=== PATIENT | male | born 1955 | race Caucasian/White ===

== ENCOUNTER 2022-11-11 13:10 | Observation (INO) | payer MEDICARE, MEDICAID, SELFPAY ==
[2022-11-11] VITALS (17 sets, daily range): BP systolic 111–136; BP diastolic 70–93; PULSE 63–76; RESP 14–18; TEMP 36.6–36.8; O2SAT 92–98; BMI 30.7; BMI 32.0
--- NOTE | 2022-11-11 | CRLHL7_ITS ---
For Patients: As a result of the Cures Act, medical imaging exams and procedure reports are released immediately into your electronic medical record. You may view this report before your referring provider. If you have questions, please contact your health care provider. INDICATION: STROKE INDICATION: Stroke. TECHNIQUE: CT head without contrast. Coronal/sagittal reconstruction images. COMPARISON: None FINDINGS: CSF spaces: Within normal limits for age. Brain parenchyma: The shahid-white differentiation is normal. No sign of mass, hemorrhage, or midline shift. Skull base and calvarium: The visualized paranasal sinuses and mastoid air cells are clear. The visualized orbits are grossly unremarkable. No skull fractures. IMPRESSION: 1. No acute intracranial hemorrhage, shift of midline structures, or mass effect. 2. No hyperdense MCA sign. 3. No acute loss of shahid-white matter differentiation. 4. Report called to Dr. Bryant, ED, 11/11/22, 1432 hours. Dictated by Chicho Rose MD @ 11/11/2022 2:34:06 PM Please note that all CT scans at this facility use dose modulation, iterative reconstruction, and/or weight-based dosing when appropriate to reduce radiation dose to as low as reasonably achievable. Dictated by: Chicho Rose MD @ 11/11/2022 14:34:17 (Electronically Signed)
--- NOTE | 2022-11-11 | CRLHL7_ITS ---
For Patients: As a result of the Century Cures Act, medical imaging exams and procedure reports are released immediately into your electronic medical record. You may view this report before your referring provider. If you have questions, please contact your health care provider. INDICATION: Acute stroke. TECHNIQUE: CTA neck with contrast bolus tracking, 3D angiographic rendering using maximum intensity projection (MIP) and images permanently archived. FINDINGS: There is carotid atherosclerosis bilaterally. There is a mild stenosis of the proximal right ICA, less than 50% by NASCET. There is no significant left carotid artery stenosis or dissection. There is no significant vertebral artery stenosis or dissection. The soft tissues of the neck are within normal limits. Advanced degenerative changes are noted in the cervical spine. IMPRESSION: Bilateral carotid atherosclerosis with mild stenosis of the proximal right ICA, less than 50% by NASCET. Please note that all CT scans at this facility use dose modulation, iterative reconstruction, and/or weight-based dosing when appropriate to reduce radiation dose to as low as reasonably achievable. Dictated by Bandar Wesley MD @ 11/11/2022 2:39:46 PM (Electronically Signed)
--- NOTE | 2022-11-11 | CRLHL7_ITS ---
For Patients: As a result of the Century Cures Act, medical imaging exams and procedure reports are released immediately into your electronic medical record. You may view this report before your referring provider. If you have questions, please contact your health care provider. INDICATION: Acute stroke. TECHNIQUE: CTA head with contrast bolus tracking, 3D angiographic rendering using maximum intensity projection (MIP) and images permanently archived. FINDINGS: There is scattered intracranial atherosclerotic disease. There is normal opacification of the intracranial vasculature. There is no large vessel occlusion. No aneurysm is identified. IMPRESSION: Unremarkable head CTA. No large vessel occlusion. Please note that all CT scans at this facility use dose modulation, iterative reconstruction, and/or weight-based dosing when appropriate to reduce radiation dose to as low as reasonably achievable. Dictated by Bandar Wesley MD @ 11/11/2022 2:36:29 PM (Electronically Signed)
--- NOTE | 2022-11-11 13:23 | ED_ITS ---
HPI - General Adult General Chief complaint: Neuro Symptoms/Altered Deficit Stated complaint: Stroke Time Seen by Provider: 11/11/22 13:14 History of Present Illness HPI narrative: 67-year-old man presenting to the emergency department via EMS with concern of stroke. Upon arrival in ED him in the back all anticipating CT imaging directly. I understand that last known well was approximately 13 hours ago when he went to bed last night 10:00 p.m.. He had delta 8 for the 1st time last night. Upon waking this morning was noted to be particularly weak and slurring his words 4 and half to 5 hours ago. This was observed by spouse. EMS noted him to be globally weak that he could not hold himself up. And that he was slurring his speech. I do not know that he has a stroke history of does have cardiac history. More history obtained on re-examination later noting that the cardiac history that was mentioned is less ischemic can actually an aortic valve replacement. Further is anticoagulated with apixaban. Further information obtained from spouse is that he does drink alcohol which Mr. Dobbins acknowledges, due to spouse is health another stressors 5 months ago began drinking in. Is drinking with sounds like about a pt of vodka a day. He did drink alcohol as usual yesterday along with the delta 8. What she witnessed was some generalized shaking and slurring of speech upon waking this morning. He has never had a seizure disorder nor has he ever had anything that sounds like DTs related to alcohol withdrawal. He typically quits cold turkey is how spouse describes it. Related Data Home Medications Medication Instructions Recorded Confirmed apixaban 5 mg tablet (Eliquis) 5 mg PO BID 11/11/22 11/11/22 atorvastatin 40 mg tablet 40 mg PO DAILY 11/11/22 11/11/22 metoprolol tartrate 50 mg tablet 50 mg PO BID 11/11/22 11/11/22 tamsulosin 0.4 mg capsule 0.4 mg PO DAILY 11/11/22 11/11/22 amoxicillin 500 mg capsule 2,000 mg PO ONCE PRN 11/12/22 11/12/22 multivitamin (Daily Multi-Vitamin 1 tab PO DAILY 11/12/22 11/12/22 tablet) Previous Rx's Medication Instructions Recorded folic acid 1 mg tablet 1 mg PO DAILY #30 tabs 11/14/22 lactulose 20 gram/30 mL oral 20 g (30 mL) PO TID #1,500 mL 11/14/22 solution thiamine mononitrate (vit B1) 100 250 mg (2.5 x 100 mg) PO TID #30 11/14/22 mg tablet (Vitamin B-1 tabs (mononitrate)) Allergies Allergy/AdvReac Type Severity Reaction Status Date / Time cephalexin Allergy Verified 11/11/22 18:12 Review of Systems Status of ROS: Reports: 6 or more systems reviewed and unremarkable except as noted in History and below [facility] Medical History (Updated 11/29/22 @ 17:07 by Luis Bryant MD) Dehydration ?E86.0 - Dehydration (ICD-10) Weakness ?R53.1 - Weakness (ICD-10) Alcohol dependence ?F10.20 - Alcohol dependence, uncomplicated (ICD-10) Osteomyelitis (~2018) ?M86.9 - Osteomyelitis, unspecified (ICD-10) Pleural effusion (~11/17/21) ?J90 - Pleural effusion, not elsewhere classified (ICD-10) BPH (benign prostatic hyperplasia) ?N40.0 - Benign prostatic hyperplasia without lower urinary tract symptoms (ICD-10) Gout ?M10.9 - Gout, unspecified (ICD-10) Pericardial effusion ?I31.39 - Other pericardial effusion (noninflammatory) (ICD-10) Pneumonia (~10/20/21) ?J18.9 - Pneumonia, unspecified organism (ICD-10) Coronary artery disease ?I25.10 - Atherosclerotic heart disease of [place] coronary artery without angina pectoris (ICD-10) Peripheral neuropathy ?G62.9 - Polyneuropathy, unspecified (ICD-10) Aortic stenosis due to bicuspid aortic valve ?Q23.0 - Congenital stenosis of aortic valve (ICD-10) ?Q23.1 - Congenital insufficiency of aortic valve (ICD-10) Hypertension ?I10 - Essential (primary) hypertension (ICD-10) Surgical History (Updated 11/11/22 @ 18:11 by Vianney Hadley MD) Amputation of toe of left foot ?S98.132A - Complete traumatic amputation of one left lesser toe, initial encounter (ICD-10) H/O aortic valve replacement (~08/16/21) ?Z95.2 - Presence of prosthetic heart valve (ICD-10) Social History What is your current living situation?: I presently have a place to live Problems where you live: no known problems Problems where you live details: none In the past 12 months, utilities in danger of being shut off: no In the past 12 mos, have been you worried that your food would run out before you had money to buy more?: never true In the past 12 mos, the food you bought just didn't last and you didn't have money to buy more?: never true Smoking Status: Former smoker Do you use any of these nicotine containing products: None Second hand tobacco smoke exposure: No How often do you have a drink containing alcohol: 4 or more times a week Alcohol type: hard liquor Alcohol type details: vodka How many standard drinks containing alcohol do you have on a typical day: 3 or 4 How often do you have six or more drinks on one occasion: Daily or almost daily AUDIT-C Alcohol total score: 9 Non-prescribed substance use: marijuana (any form) Caffeine: No How often does anyone, including family, friends and others, physically hurt you : never How often does anyone, including family, friends and others, insult or talk down to you: never How often does anyone, including family, friends and others, threaten you with harm: never How often does anyone, including family, friends and others, scream or curse at you: never service: Yes Exam Narrative: Exam Narrative: Pleasant. Examined on the ambulance cot initially. Head is atraumatic. Very dry mouth and slurring speech is difficult to form. Able to follow commands quickly. GCS of 15. NIH stroke scale perhaps of 1 On re-examination looks to be quite alert. More articulate now that I have moistened his mouth with some ice chips. Cranial nerves 2-12 intact. NIH stroke scale now at 0 Head is atraumatic. Neck is supple. Breathing easily and lungs appear to be clear. 2/6 systolic murmur. Loudest at the left sternal border. Little distant. Lower extremities are a little cool. He has absent 2 through 5 toes on the left foot --reportedly due to what I am understanding as osteomyelitis. He is a little tremulous and unsteady in his movements. 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 Abdomen is soft nontender without apparent mass. Const: Vital Signs, click to edit/add: Vital Signs - 24 hr 11/11/22 13:16 Temperature 97.8 F Pulse Rate [Left P ulse Oximeter] 74 Respiratory Rate 16 Blood Pressure [Ri ght Upper Arm] 127/93 H Pulse Oximetry 92 Oxygen Delivery Me thod Room Air Documenting provider has reviewed patient's vital signs: yes Course Course Hospital Course: Colton is a 67-year-old male who presented to the hospital for weakness and slurred speech. Symptoms were initially thought to be secondary to alcohol and THC intoxication, but persisted throughout stay. He did not exhibit elevated CIWA scores. symptoms were nonlateralizing during stay. MRI attempted, patient was unable to complete this secondary to visual hallucinations. Labs exhibited elevated LFTs and ammonia level, lactulose initiated for hepatic encephalopathy. Therapies followed during stay and patient was able to ambulate with a walker. MOCA 04/21. updated by phone; understands patient's diagnosis and need for complete alcohol cessation. She believes that she can take him home with 13/11 supervision and close PCP follow-up to discuss any further needs they may have. Vital Signs Vital signs: Initial Vital Signs Temperature 97.8 F 11/11/22 13:16 Temperature Source Temporal Artery Scan 11/11/22 13:16 Pulse Rate 74 11/11/22 13:16 Respiratory Rate 16 11/11/22 13:16 Blood Pressure 127/93 H 11/11/22 13:16 Blood Pressure Mean 104 11/11/22 13:16 Blood Pressure Position Semi-Fowlers 11/11/22 13:16 Pulse Oximetry 92 11/11/22 13:16 Oxygen Delivery Method Room Air 11/11/22 13:16 Vital Signs Temperature 97.8 F 11/11/22 13:16 Pulse Rate 74 11/11/22 13:16 Respiratory Rate 16 11/11/22 13:16 Blood Pressure 127/93 H 11/11/22 13:16 Pulse Oximetry 92 11/11/22 13:16 Oxygen Delivery Method Room Air 11/11/22 13:16 Temperature 98.0 F 11/14/22 17:48 Pulse Rate 84 11/14/22 17:48 Respiratory Rate 16 11/14/22 17:48 Blood Pressure 124/77 11/14/22 17:48 Pulse Oximetry 95 11/14/22 17:48 Oxygen Delivery Method Room Air 11/14/22 17:48 Medical Decision Making MDM Narrative Medical decision making narrative: I met in back hallway to CT. Filling stroke protocols did head scan and CTA head and neck. I also spoke with Stroke Neuro agreement with plan. Initiated IV hydration. I think this is more of a dry mouth affecting speech I do not see significant stroke symptoms though otherwise. Nothing really focal otherwise. Will be likely need to be admitted for weakness, dehydration, further evaluation for alcohol-related altered mental status and potential withdrawal. Likely THC ingestion exacerbated underlying propensity toward altered mental status. Encephalopathy? Possible seizure? I did review head images including noncontrast head CT and CTA head. Was contacted also by Radiology. Does not appear to be any acute bleed. There is no hypodense sign, no evidence of large vessel ischemia. Final Report: INDICATION: Acute stroke. TECHNIQUE: CTA neck with contrast bolus tracking, 3D angiographic rendering using maximum intensity projection (MIP) and images permanently archived. FINDINGS: There is carotid atherosclerosis bilaterally. There is a mild stenosis of the proximal right ICA, less than 50% by NASCET. There is no significant left carotid artery stenosis or dissection. There is no significant vertebral artery stenosis or dissection. The soft tissues of the neck are within normal limits. Advanced degenerative changes are noted in the cervical spine. IMPRESSION: Bilateral carotid atherosclerosis with mild stenosis of the proximal right ICA, less than 50% by NASCET. Have discussed this case with Stroke Neuro in agreement with already receiving maximal medical care at this time. Is too weak to be managed at home at this time. Still not really mentally clear I think. I have discussed with hospitalist for admission. Lab Data Lab results reviewed: Yes I reviewed the patient's lab results Labs: Lab Results 11/11/22 11/11/22 11/11/22 Range/Units 06:31 13:10 14:52 WBC 6.10 (4.50-11.00) K/uL RBC 4.00 L (4.30-5.90) m/uL Hgb 14.0 (13.5-17.5) gm/dL Hct 41.6 (37.0-53.0) % MCV 104 H (80-100) fL MCH 35 H (26-34) pg MCHC 34 (32-36) gm/dL RDW Coeff of [place] 15.4 (11.5-15.5) % Plt Count 103 L (140-440) K/uL Neut % (Auto) 75.2 H (42.0-72.0) % Lymph % (Auto) 15.1 L (20-44) % [place] % (Auto) 7.9 (0.0-11.0) % Eos % (Auto) 0.8 (0.0-7.0) % Baso % (Auto) 0.7 (0.0-3.0) % Neut # (Auto) 4.60 (1.7-7.0) K/uL Lymph # (Auto) 0.90 (0.90-2.90) K/uL [place] # (Auto) 0.50 (0.00-0.90) K/UL Eos # (Auto) 0.05 (0.00-0.50) K/uL Baso # (Auto) 0.04 (0.00-0.30) K/uL Abs Immat Gran (auto) 0.02 (0.00-0.30) K/uL Imm/Tot Granulo (auto) 0.3 % INR 2.31 H (0.91-1.10) APTT 39 H (23-33) Seconds Sodium 135 (135-149) mmol/L Potassium 4.3 (3.6-5.1) mmol/L Chloride 103 (96-114) mmol/L Carbon Dioxide 24 (20-32) mmol/L BUN 11 (7-30) mg/dL Creatinine 0.9 (0.5-1.5) mg/dL Estimated Creat Clear 78.44 Estimated GFR 95 ml/min Glucose 127 H (60-115) mg/dL Lactate 2.6 H (0.5-1.9) mmol/L Calcium 7.9 L (8.4-10.6) mg/dL Magnesium 1.9 (1.5-2.6) mg/dL Troponin I < 0.01 L (0.01-0.04) ng/mL C-Reactive Protein 0.7 (0.5-1.0) mg/dL NT-Pro-B Natriuret Pep 260 pg/mL Urine Color [place] A (Yellow) Urine Appearance Slightly Cloudy A (Clear) Urine pH 7.5 (5.0-8.5) Ur Specific [place] 1.020 (1.000-1.030) Urine Protein 3+ A (Negative) Urine Glucose (UA) Negative (Negative) Urine Ketones Negative (Negative) Urine Blood Trace-intact A (Negative) Urine Nitrite Negative (Negative) Urine Bilirubin Negative (Negative) Urine Urobilinogen 2.0 A (0.2-1.0) Ur Leukocyte Esterase Negative (Negative) Urine RBC 0-2 (0-2) Urine WBC 2-5 (0-5) Ur Squamous Epith Cells Moderate A (None-Few) Amorphous Sediment Few A (None) Other Sediment Moderate A (None) Urine Bacteria Moderate A (None) Fine Granular Casts Moderate A (None) Urine Opiates Screen Negative (Negative) Ur Oxycodone Screen Negative (Negative) Urine Methadone Screen Negative (Negative) Ur Propoxyphene Screen Negative (Negative) Ur Barbiturates Screen Negative (Negative) U Tricyclic Antidepress POSITIVE A (Negative) Ur Phencyclidine Scrn Negative (Negative) Ur Amphetamines Screen Negative (Negative) U Methamphetamines Scrn Negative (Negative) U Benzodiazepines Scrn Negative (Negative) Urine Cocaine Screen Negative (Negative) U Marijuana (THC) Screen POSITIVE A (Negative) Ur Drug Screen Comment See Note Ethyl Alcohol < 0.01 L (0.01-0.03) % Critical Care Time Critical Care Time Critical Care Time: Yes Attestation: The patient required my highest level preparedness to intervene emergently and I personally spent this critical care time directly and personally managing the patient. This critical care time included: Obtaining a history; Examining the patient; Pulse oximetry; Ordering and reviewing of studies; Arranging urgent treatment with development of a management plan; Evaluation of patients response to treatment; Frequent reassessment discussions with other providers. This critical care time was performed to assess and manage the high probability of imminent life-threatening deterioration that could result in multiorgan failure. It was exclusive of separate billable procedures and treating other patients and teaching time. Total Critical Care Time in Minutes: 50 Discharge Plan Discharge Clinical Impression: Alcohol dependence, Weakness, Dehydration, Altered mental status Patient Disposition: Admitted As Observation Condition: Improved Activity Level: No strenuous activity Activity Detail: No driving Discharge Diet: Heart Healthy (2 gm sodium, low fat)
[2022-11-11 13:35] LABS: Basophils Absolute Auto 0.04 K/uL (0.00-0.30); Basophils Percent Auto 0.7 % (0.0-3.0); Eosinophils Absolute Auto 0.05 K/uL (0.00-0.50); Eosinophils Percent Auto 0.8 % (0.0-7.0); Hematocrit 41.6 % (37.0-53.0); Immature Granulocytes Abs Auto 0.02 K/uL (0.00-0.30); Immature Granulocytes Pct Auto 0.3 %; Lymphocytes Percent Auto 15.1 % (20-44); Mean Corpuscular HGB Conc 34 gm/dL (32-36); Mean Corpuscular Hemoglobin 35 pg (26-34); Mean Corpuscular Volume 104 fL (80-100); Monocytes Percent Auto 7.9 % (0.0-11.0); Neutrophils Percent Auto 75.2 % (42.0-72.0); Platelet Count* 103 K/uL (140-440); RDW Coefficient of Variation % 15.4 % (11.5-15.5)
[2022-11-11 13:36] LABS: Lactate* 2.6 mmol/L (0.5-1.9)
[2022-11-11 13:49] LABS: Slide Review Reflex No
[2022-11-11 13:55] LABS: Chloride* 103 mmol/L (96-114); Potassium* 4.3 mmol/L (3.6-5.1); Sodium* 135 mmol/L (135-149)
[2022-11-11 13:56] LABS: INR 2.31 (0.91-1.10); Prothrombin Time 26.5 Seconds
[2022-11-11 13:58] LABS: Creatinine* 0.9 mg/dL (0.5-1.5); Est. Creatinine Clearance* 78.44; Estimated Glomerular Filt Rate 95 ml/min; Partial Thromboplastin Time* 39 Seconds (23-33)
[2022-11-11 13:59] LABS: Blood Urea Nitrogen* 11 mg/dL (7-30); Calcium* 7.9 mg/dL (8.4-10.6); Carbon Dioxide* 24 mmol/L (20-32); Glucose* 127 mg/dL (60-115); Magnesium* 1.9 mg/dL (1.5-2.6)
[2022-11-11] MEDS: 0.9 % SODIUM CHLORIDE 1000 ml 1,000 ML IV ×2 (14:00→15:25)
[2022-11-11 14:02] LABS: C Reactive Protein* 0.7 mg/dL (0.5-1.0)
[2022-11-11 14:11] LABS: Ethanol* < 0.01 % (0.01-0.03); NT Pro B Type NatriureticPept* 260 pg/mL; Troponin I* < 0.01 ng/mL (0.01-0.04)
[2022-11-11 15:10] LABS: Appearance Urine Slightly Cloudy (Clear); Bilirubin Urine Negative (Negative); Blood Urine Trace-intact (Negative); Color Urine Orange (Yellow); Glucose Urine Negative (Negative); Ketones Urine Negative (Negative); Leukocyte Esterase Urine Negative (Negative); Nitrite Urine Negative (Negative); Protein Urine 3+ (Negative); pH Urine 7.5 (5.0-8.5)
[2022-11-11 15:19] LABS: RBC Urine 0-2 (0-2)
[2022-11-11 15:20] LABS: Amorphous Sediment Urine Few; Bacteria Urine Moderate; Other Sediment Urine Moderate; Squamous Epithelial Cell Urine Moderate (None-Few)
[2022-11-11 15:21] LABS: Fine Granular Casts Urine Moderate
--- NOTE | 2022-11-11 17:58 | PM.IMHP1 ---
Hospitalist- H&P: HPI History of Present Illness Time Seen by Provider: 18:18 Date Seen: 11/11/22 Chief complaint: Stroke Narrative: Colton Dobbins is a 67 year old male who drinks a pt of vodka every day and has a history of hypertension and aortic valve replacement for which he is on chronic anticoagulation who woke up around 10am with slurred speech and inability to get bed. His tells me that they have gotten in the habit of being lazy and normally sleeps in to about 10 a.m.. They do not do much exercise and are fairly sedentary in the house even. He had his usual pt of vodka last night which he drinks every day, but also had half of a delta 8 cookie which contains THC according to their friend Renny, who was in the room with the patient and his . He has never tried a THC cookie before and his wonders if this may have contributed to his condition. She noticed that when he woke up he was playing with a cats while still staying in bed, but seemed to be interacting with them in an unusual way. She went to help him get up, but he could not get out of the bed and his speech was slurred. It also seemed like he was shaking and having trouble doing things such as turning off the fan near the bed. Patient himself does not remember any of this. His says that he is currently a little bit better than he was, but still has some slurred speech. The patient's , Malorie, called the patient's friend Renny who came over and eventually called a friend of his who is a nurse. The nurse friend came over and examined Colton and thought he might be having a stroke to they got him to the emergency department. He has drunk heavily on and off for years, but had been sober for several months last year when he underwent multiple different heart surgeries. In December or January of last year he lost his job at [employer] in [place]. After that he started drinking heavily again. He has not seen his primary care provider for several months and is due to get back into see him, but notes that his provider has been very unhappy that he has gone back to drinking heavily and has implored him to stop. Review of Systems Status of ROS: Reports: 10 or more systems reviewed and unremarkable except as noted in History and below [facility] Medical History (Updated 11/11/22 @ 23:52 by Vianney Hadley MD) Osteomyelitis (~2019) ?M86.9 - Osteomyelitis, unspecified (ICD-10) Pleural effusion (~11/17/21) ?J90 - Pleural effusion, not elsewhere classified (ICD-10) BPH (benign prostatic hyperplasia) ?N40.0 - Benign prostatic hyperplasia without lower urinary tract symptoms (ICD-10) Gout ?M10.9 - Gout, unspecified (ICD-10) Pericardial effusion ?I31.39 - Other pericardial effusion (noninflammatory) (ICD-10) Pneumonia (~10/20/21) ?J18.9 - Pneumonia, unspecified organism (ICD-10) Coronary artery disease ?I25.10 - Atherosclerotic heart disease of [place] coronary artery without angina pectoris (ICD-10) Peripheral neuropathy ?G62.9 - Polyneuropathy, unspecified (ICD-10) Aortic stenosis due to bicuspid aortic valve ?Q23.0 - Congenital stenosis of aortic valve (ICD-10) ?Q23.1 - Congenital insufficiency of aortic valve (ICD-10) Hypertension ?I10 - Essential (primary) hypertension (ICD-10) Surgical History (Updated 11/11/22 @ 18:11 by Vianney Hadley MD) Amputation of toe of left foot ?S98.132A - Complete traumatic amputation of one left lesser toe, initial encounter (ICD-10) H/O aortic valve replacement (~08/16/21) ?Z95.2 - Presence of prosthetic heart valve (ICD-10) Social History What is your current living situation?: I presently have a place to live Problems where you live: no known problems Problems where you live details: none In the past 12 months, utilities in danger of being shut off: no In the past 12 mos, have been you worried that your food would run out before you had money to buy more?: never true In the past 12 mos, the food you bought just didn't last and you didn't have money to buy more?: never true Smoking Status: Former smoker Do you use any of these nicotine containing products: None Second hand tobacco smoke exposure: No How often do you have a drink containing alcohol: 4 or more times a week Alcohol type: hard liquor Alcohol type details: vodka How many standard drinks containing alcohol do you have on a typical day: 3 or 4 How often do you have six or more drinks on one occasion: Daily or almost daily AUDIT-C Alcohol total score: 9 Non-prescribed substance use: marijuana (any form) Caffeine: No How often does anyone, including family, friends and others, physically hurt you: never How often does anyone, including family, friends and others, insult or talk down to you: never How often does anyone, including family, friends and others, threaten you with harm: never How often does anyone, including family, friends and others, scream or curse at you: never service: Yes Meds Home Medications and Allergies Home Medications Medication Instructions Recorded Confirmed Type apixaban 5 mg tablet (Eliquis) 5 mg PO BID 11/11/22 11/11/22 History atorvastatin 40 mg tablet 40 mg PO DAILY 11/11/22 11/11/22 History metoprolol tartrate 50 mg tablet 50 mg PO BID 11/11/22 11/11/22 History nortriptyline 50 mg capsule 50 mg PO QPM 11/11/22 11/11/22 History oxycodone 5 mg tablet 5 mg PO Q4H 11/11/22 11/11/22 History tamsulosin 0.4 mg capsule 0.4 mg PO DAILY 11/11/22 11/11/22 History Allergies Allergy/AdvReac Type Severity Reaction Status Date / Time cephalexin Allergy Verified 11/11/22 18:12 Exam Narrative: Exam Narrative: General: No acute distress. Awake, alert, oriented to self and place, ability to give history waxes and wanes. Family had to correct him on some details and say he is normally sharp. Bilateral asterixis is present. HEENT: Normocephalic atraumatic, pupils equally round and reactive to light and accommodation. Oropharynx clear. Mucous membranes are moist. No cervical lymphadenopathy, thyromegaly or carotid bruits. No JVD. Cardiovascular: Regular rate and rhythm. Grade 3/6 systolic murmur loudest at the left upper sternal border. Chest: No increased work of breathing. Clear to auscultation bilaterally. No crackles or wheezes. Abdomen: Bowel sounds present. Soft, nondistended, nontender. No hepatosplenomegaly or masses. Extremities: 2mm black eschar on top of R 2nd toe PIP joint, no induration or drainage. 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 Multiple surgical scars that are well healed on the left foot with healed surgical amputations of all but the great toe. 1+ bilateral pretibial edema, no cyanosis or clubbing. Skin: As above. No jaundice, no pallor, no rashes. Neuro: Bilateral asterixis and tremor present. No pronator drift. Romberg is negative. Cranial nerves 2-12 are intact. Extraocular movements are full. No nystagmus. No facial asymmetry. Tongue is midline. Peripheral vision and vision are grossly intact. Strength is 5/5 in all 4 extremities, but exam seems variable and I had to have him repeat things several times especially for the left leg, but he was ultimately able to comply with good strength. DTRs intact and symmetric. Light touch sensation is intact in face body and extremities. Coordination is impaired in the left arm and leg, leg more so than the arm. Const: Vital Signs, click to edit/add: Vital Signs - 24 hr 11/11/22 13:16 Temperature 97.8 F Pulse Rate [Left P ulse Oximeter] 74 Respiratory Rate 16 Blood Pressure [Ri ght Upper Arm] 127/93 H Pulse Oximetry 92 Oxygen Delivery Me thod Room Air Documenting provider has reviewed patient's vital signs: yes Hospitalist - H&P: Result Labs Labs: Short CBC 11/11/22 Range/Units 13:10 WBC 6.10 (4.50-11.00) K/uL Hgb 14.0 (13.5-17.5) gm/dL Hct 41.6 (37.0-53.0) % Plt Count 103 L (140-440) K/uL BMP 11/11/22 13:10 Sodium 135 Potassium 4.3 Chloride 103 Carbon Dioxide 24 BUN 11 Creatinine 0.9 Glucose 127 H Calcium 7.9 L Cardiac Enzymes 11/11/22 Range/Units 13:10 Troponin I < 0.01 L (0.01-0.04) ng/mL Urine 11/11/22 Range/Units 14:52 Urine Color [place] A (Yellow) Urine Appearance Slightly Cloudy A (Clear) Urine pH 7.5 (5.0-8.5) Ur Specific [place] 1.020 (1.000-1.030) Urine Protein 3+ A (Negative) Urine Glucose (UA) Negative (Negative) 11/11/2022 EKG: Normal sinus rhythm, 75 beats per minute, right bundle-branch block. Ordering Physician: Milena Ann M.D. Date of Service: 11/11/22 Procedure(s): CT head/brain wo con Accession Number(s): [id number] cc: Milena Ann M.D.; Yair Mercado M.D.~ For Patients: As a result of the Cures Act, medical imaging exams and procedure reports are released immediately into your electronic medical record. You may view this report before your referring provider. If you have questions, please contact your health care provider. INDICATION: STROKE INDICATION: Stroke. TECHNIQUE: CT head without contrast. Coronal/sagittal reconstruction images. COMPARISON: None FINDINGS: CSF spaces: Within normal limits for age. Brain parenchyma: The shahid-white differentiation is normal. No sign of mass, hemorrhage, or midline shift. Skull base and calvarium: The visualized paranasal sinuses and mastoid air cells are clear. The visualized orbits are grossly unremarkable. No skull fractures. IMPRESSION: 1. No acute intracranial hemorrhage, shift of midline structures, or mass effect. 2. No hyperdense MCA sign. 3. No acute loss of shahid-white matter differentiation. 4. Report called to Dr. Bryant, ED, 11/11/22, 1432 hours. Dictated by Chicho Rose MD @ 11/11/2022 2:34:06 PM Please note that all CT scans at this facility use dose modulation, iterative reconstruction, and/or weight-based dosing when appropriate to reduce radiation dose to as low as reasonably achievable. Dictated by: Chicho Rose MD @ 11/11/2022 14:34:17 (Electronically Signed) Ordering Physician: Milena Ann M.D. Date of Service: 11/11/22 Procedure(s): CT angio head Accession Number(s): [id number] cc: Milena Ann M.D.; Yair Mercado M.D.~ For Patients: As a result of the Cures Act, medical imaging exams and procedure reports are released immediately into your electronic medical record. You may view this report before your referring provider. If you have questions, please contact your health care provider. INDICATION: Acute stroke. TECHNIQUE: CTA head with contrast bolus tracking, 3D angiographic rendering using maximum intensity projection (MIP) and images permanently archived. FINDINGS: There is scattered intracranial atherosclerotic disease. There is normal opacification of the intracranial vasculature. There is no large vessel occlusion. No aneurysm is identified. IMPRESSION: Unremarkable head CTA. No large vessel occlusion. Please note that all CT scans at this facility use dose modulation, iterative reconstruction, and/or weight-based dosing when appropriate to reduce radiation dose to as low as reasonably achievable. Dictated by Bandar Wesley MD @ 11/11/2022 2:36:29 PM (Electronically Signed) Ordering Physician: Milena Ann M.D. Date of Service: 11/11/22 Procedure(s): CT angio neck Accession Number(s): [id number] cc: Milena Ann M.D.; Yair Mercado M.D.~ For Patients: As a result of the Cures Act, medical imaging exams and procedure reports are released immediately into your electronic medical record. You may view this report before your referring provider. If you have questions, please contact your health care provider. INDICATION: Acute stroke. TECHNIQUE: CTA neck with contrast bolus tracking, 3D angiographic rendering using maximum intensity projection (MIP) and images permanently archived. FINDINGS: There is carotid atherosclerosis bilaterally. There is a mild stenosis of the proximal right ICA, less than 50% by NASCET. There is no significant left carotid artery stenosis or dissection. There is no significant vertebral artery stenosis or dissection. The soft tissues of the neck are within normal limits. Advanced degenerative changes are noted in the cervical spine. IMPRESSION: Bilateral carotid atherosclerosis with mild stenosis of the proximal right ICA, less than 50% by NASCET. Please note that all CT scans at this facility use dose modulation, iterative reconstruction, and/or weight-based dosing when appropriate to reduce radiation dose to as low as reasonably achievable. Dictated by Bandar Wesley MD @ 11/11/2022 2:39:46 PM (Electronically Signed) Assessment and Plan Assessment and plan (1) Slurred speech: Problem comment: This is combined with confusion, weakness, and left-sided decreased coordination. Differential includes postictal state from alcohol withdrawal seizure, stroke, although this is less likely since he had a CT head and CTA head that did not show evidence of stroke, toxic metabolic encephalopathy, intoxication, polypharmacy with oxycodone and alcohol. Admit for observation and obtain an MRI head tomorrow or Sunday. If he is not better by tomorrow morning, consider lumbar puncture. Decrease oxycodone dose. Start CIWA protocol. Check TSH, also glucose is noted to be 127 on today's labs, not hypoglycemic. Status: Acute (2) Weakness: Problem comment: left side less coordinated, but no pronator drift, consult PT and OT. Status: Acute (3) Macrocytosis without anemia: Problem comment: This is in the setting of thrombocytopenia as well. May benefit from a peripheral blood smear, although I think this is most likely secondary to alcohol use. Status: Acute (4) Thrombocytopenia: Problem comment: May benefit from peripheral blood smear, although I suspect this is secondary to heavy alcohol use. Discussed the danger of this while taking eliquis and using alcohol, especially so heavily Status: Acute (5) Alcohol dependence: Problem comment: I spoke with the patient about the abnormal laboratory values which may be secondary to heavy alcohol use and have recommended complete abstinence from alcohol at this point. Patient and his family demonstrated understanding. Status: Acute (6) Dehydration: Problem comment: He received 2 L IV normal saline in the ER and his lactate has normalized. Saline lock and continue to encourage oral fluids. Status: Acute (7) Hypertension: Status: Chronic Plan Imaging as above and obtain TSH. PT and OT consults. H&P: Quality Stroke Contraindication Not Initiating IV-Tpa: Contraindicated (Time of onset unknown) Symptom Onset Unknown: Yes Contraindication Antithromb by Day Two: Medical contraindication (On Eliquis and has borderline low platelet count) Rehab Services Assessed: Physical therapy assessment (Ordered)
[2022-11-11 18:20] LABS: Lactate* 1.7 mmol/L (0.5-1.9)
[2022-11-11] MEDS: APIXABAN 5 MG TABLET PO (20:35)
[2022-11-11] MEDS: METOPROLOL TARTRATE 50 MG TABLET PO (20:35)
[2022-11-11] MEDS: THIAMINE 100 MG TABLET 250 MG PO (20:35)
[2022-11-11] MEDS: SODIUM CHLORIDE 0.9 % (FLUSH) 10 ML SYRINGE 5 ML IVF (20:36)
[2022-11-12 03:00] VITALS: BP 126/79; PULSE 61; RESP 16; TEMP 36.6; O2SAT 98
--- NOTE | 2022-11-12 05:25 | PC.NURSE ---
Patient alert and oriented. Speech clear and appropriate, no slurring noted but patient does occasionally pause and has to think of what he wants to say. Strength in extremities equal, mild weakness noted. CIWA scores consistently 1 throughout the night, patient does have tremor at baseline and does not feel it is any worse than normal. Pain reported to hip, pain is 3/10 and tolerable. Patient did get out of bed independently and was ambulating to the bathroom, patient was unable to hold urine and urinated on the floor. Bowel sounds active x 4 quadrants, denies any nausea or vomiting. Lung sounds clear, no cough or shortness of breath noted.
[2022-11-12 06:43] LABS: Amphetamine Screen Urine Negative (Negative); Barbiturate Screen Urine Negative (Negative); Benzodiazepines Screen Urine Negative (Negative); Cannabinoid Screen Urine POSITIVE (Negative); Cocaine Screen Urine Negative (Negative); Methadone Screen Urine Negative (Negative); Methamphetamines Screen Urine Negative (Negative); Opiate Screen Urine Negative (Negative); Oxycodone Screen Urine Negative (Negative); Phencyclidine Screen Urine Negative (Negative); Tricyclic Antidepressant Urine POSITIVE (Negative)
[2022-11-12 06:47] LABS: Ionized Calcium* 1.07 mmol/L (1.11-1.30)
[2022-11-12 06:58] LABS: Basophils Absolute Auto 0.04 K/uL (0.00-0.30); Basophils Percent Auto 0.6 % (0.0-3.0); Eosinophils Absolute Auto 0.19 K/uL (0.00-0.50); Eosinophils Percent Auto 2.9 % (0.0-7.0); Hematocrit 39.7 % (37.0-53.0); Hemoglobin* 13.1 gm/dL (13.5-17.5); Immature Granulocytes Abs Auto 0.01 K/uL (0.00-0.30); Immature Granulocytes Pct Auto 0.2 %; Lymphocytes Absolute Auto 1.41 K/uL (0.90-2.90); Lymphocytes Percent Auto 21.8 % (20-44); Mean Corpuscular HGB Conc 33 gm/dL (32-36); Mean Corpuscular Hemoglobin 35 pg (26-34); Mean Corpuscular Volume 106 fL (80-100); Monocytes Percent Auto 9.6 % (0.0-11.0); Neutrophils Absolute Auto 4.19 K/uL (1.7-7.0); Neutrophils Percent Auto 64.9 % (42.0-72.0); Platelet Count* 79 K/uL (140-440); RDW Coefficient of Variation % 15.4 % (11.5-15.5); Red Blood Count 3.74 m/uL (4.30-5.90); White Blood Count* 6.46 K/uL (4.50-11.00)
[2022-11-12 07:01] LABS: Slide Review Reflex No
[2022-11-12 07:15] LABS: INR 2.44 (0.91-1.10); Prothrombin Time 27.7 Seconds
[2022-11-12 07:18] LABS: Chloride* 105 mmol/L (96-114); Potassium* 4.1 mmol/L (3.6-5.1); Sodium* 136 mmol/L (135-149)
[2022-11-12 07:21] LABS: Blood Urea Nitrogen* 11 mg/dL (7-30); Carbon Dioxide* 27 mmol/L (20-32); Creatinine* 0.8 mg/dL (0.5-1.5); Est. Creatinine Clearance* 78.44; Estimated Glomerular Filt Rate 98 ml/min; Glucose* 83 mg/dL (60-115)
[2022-11-12 07:22] LABS: Calcium* 7.6 mg/dL (8.4-10.6)
[2022-11-12 08:20] VITALS: BP 139/83; PULSE 63; RESP 18; TEMP 36.7; O2SAT 97
[2022-11-12 08:35] LABS: Hemoglobin A1C* 4.89 % (0-5.6)
[2022-11-12] MEDS: THIAMINE 100 MG TABLET 250 MG PO ×2 (09:42→20:37)
[2022-11-12] MEDS: ATORVASTATIN CALCIUM 40 MG TABLET PO (09:43)
[2022-11-12] MEDS: FOLIC ACID 1 MG TABLET PO (09:43)
[2022-11-12] MEDS: METOPROLOL TARTRATE 50 MG TABLET PO ×2 (09:44→20:37)
[2022-11-12] MEDS: MULTIVITAMIN/MINERALS 1 TABLET 1 TAB PO (09:44)
[2022-11-12] MEDS: SODIUM CHLORIDE 0.9 % (FLUSH) 10 ML SYRINGE 5 ML IVF ×2 (09:45→20:37)
[2022-11-12] MEDS: TAMSULOSIN HCL 0.4 MG CAPSULE PO (09:45)
[2022-11-12] MEDS: APIXABAN 5 MG TABLET PO ×2 (09:46→20:37)
[2022-11-12 12:00] VITALS: BP 112/62; PULSE 64; RESP 18; TEMP 36.4; O2SAT 96
--- NOTE | 2022-11-12 15:37 | PC.NURSE ---
PT eval by PT, walked with SBA of 1, GB and walker. Some balance issues noted. No word searching, no dysphagia with medications. Speech has cleared, MRI screening form completed per protocol. Kvng 100% of bkfst, declined lunch tray. Up in recliner for majority of shift. Pt denies pain. VS unremarkable, CIWA scored twice and value equal to 1 both times. No acute sx of ETOH withdrawal noted. No inappropriate behaviors Pt calm and cooperative with nsg cares. Brain MRI pending. Adequate I & 0. Report to Ariane Bull RN for evening shift.
[2022-11-12 16:15] VITALS: BP 129/87; PULSE 66; RESP 16; TEMP 36.6; O2SAT 97
--- NOTE | 2022-11-12 16:27 | PM.IMPN1 ---
Progress Note: A&P Assessment and plan (1) Slurred speech: Problem details: - noted on admission; combined with confusion, weakness, and left-sided decreased coordination - ddx: postictal state from ETOH withdrawal seizure (no history of this), stroke (less likely given reassuring head CT/CTA), toxic metabolic encephalopathy, intoxication, polypharmacy with oxycodone/ETOH - TSH pending, MRI of brain has been ordered, consider further workup pending clinical course - continue to follow CIWA Status: Acute (2) Weakness: Problem details: - therapies following Status: Acute (3) Macrocytosis without anemia: Problem details: - Hgb 13.1 on 11/12, also has thrombocytopenia (likely related to ETOH abuse), outpatient workup if desired Status: Acute (4) Thrombocytopenia: Problem details: - likely 2/2 ETOH use, understands importance of abstaining from ETOH given thrombocytopenia and anticoagulation Status: Acute (5) Alcohol dependence: Problem details: - patient understands many of his lab abnormalities are likely 2/2 ETOH use. Complete abstinence recommended, patient and family demonstrated understanding Status: Acute (6) Dehydration: Problem details: - received 2L IV normal saline in the ER and lactate then normalized - encourage po intake Status: Acute (7) Hypertension: Status: Chronic Plan - continue therapies, await MRI - follow CIWA scores - Apixaban for ppx - likely home tomorrow pending clinical course Subjective Date Seen: 11/12/22 Interval history: Patient is feeling much better today. He is not having significant alcohol withdrawal symptoms. He is working with therapies but not yet back to baseline; amenable to brain MRI for further workup. Specifically denies headaches, chest pain, dyspnea. Exam Narrative: Exam Narrative: GEN: Alert and answering questions appropriately HEENT: Normal external ears, EOMIs bilaterally, no scleral icterus CV: RRR, early systolic murmur with fixed split S2 noted R: LCTA bilaterally without concerning wheezing, air movement adequate Ext: wwp, no concerning edema Skin: No concerning skin lesions or rashes on exposed skin Neuro: No dysmetria on [id number] testing, no resting tremor, no asterixis noted on exam today, no pronator drift. Normal and symmetric DTRs, gait not observed Psych: Appropriate Const: Vital Signs, click to edit/add: Vital Signs - 24 hr 11/11/22 16:30 11/11/22 16:30 11/11/22 17:00 Temperature Pulse Rate 69 Pulse Rate [Left A pical] Pulse Rate [Right Pulse Oximeter] Pulse Rate [Right Radial] 69 71 Respiratory Rate 14 Blood Pressure 123/77 Blood Pressure [Ri ght Arm] Pulse Oximetry 96 Oxygen Delivery Me thod 11/11/22 17:00 11/11/22 17:15 11/11/22 17:15 Temperature 98.0 F Pulse Rate 71 Pulse Rate [Left A pical] Pulse Rate [Right Pulse Oximeter] Pulse Rate [Right Radial] 68 Respiratory Rate 14 18 16 Blood Pressure 119/82 Blood Pressure [Ri ght Arm] 128/78 Pulse Oximetry 96 98 92 Oxygen Delivery Me thod Room Air Room Air 11/11/22 17:59 11/11/22 19:00 11/11/22 23:00 Temperature 98.0 F 98.1 F 98.2 F Pulse Rate Pulse Rate [Left A pical] Pulse Rate [Right Pulse Oximeter] Pulse Rate [Right Radial] 68 65 63 Respiratory Rate 16 16 16 Blood Pressure Blood Pressure [Ri ght Arm] 128/78 132/81 120/78 Pulse Oximetry 98 97 98 Oxygen Delivery Ne thod Room Air Room Air Room Air 11/12/22 03:00 11/12/22 08:20 11/12/22 12:00 Temperature 97.8 F 98.1 F 97.6 F Pulse Rate Pulse Rate [Left A pical] 63 64 Pulse Rate [Right Pulse Oximeter] 61 63 64 Pulse Rate [Right Radial] Respiratory Rate 16 18 18 Blood Pressure Blood Pressure [Ri ght Arm] 126/79 139/83 112/62 Pulse Oximetry 98 97 96 Oxygen Delivery Me thod Room Air Room Air Room Air 11/12/22 12:00 Temperature 97.6 F Pulse Rate Pulse Rate [Left A pical] 64 Pulse Rate [Right Pulse Oximeter] 64 Pulse Rate [Right Radial] Respiratory Rate 18 Blood Pressure Blood Pressure [Ri ght Arm] 112/62 Pulse Oximetry 96 Oxygen Delivery Me thod Room Air Labs Labs: Laboratory Results - last 24 hr 11/11/22 11/11/22 11/12/22 06:31 18:15 06:12 WBC 6.46 RBC 3.74 L Hgb 13.1 L Hct 39.7 MCV 106 H MCH 35 H MCHC 33 RDW Coeff of Noam 15.4 Plt Count 79 L Neut % (Auto) 64.9 Lymph % (Auto) 21.8 [place] % (Auto) 9.6 Eos % (Auto) 2.9 Baso % (Auto) 0.6 Neut # (Auto) 4.19 Lymph # (Auto) 1.41 [place] # (Auto) 0.60 Eos # (Auto) 0.19 Baso # (Auto) 0.04 Abs Immat Gran (auto) 0.01 Imm/Tot Granulo (auto) 0.2 INR 2.44 H Sodium 136 Potassium 4.1 Chloride 105 Carbon Dioxide 27 BUN 11 Creatinine 0.8 Estimated Creat Clear 78.44 Estimated GFR 98 Glucose 83 Hemoglobin A1c 4.89 Lactate 1.7 Calcium 7.6 L Ionized Calcium Stephenie 1.07 L Urine Opiates Screen Negative Ur Oxycodone Screen Negative Urine Methadone Screen Negative Ur Propoxyphene Screen Negative Ur Barbiturates Screen Negative U Tricyclic Antidepress POSITIVE A Ur Phencyclidine Scrn Negative Ur Amphetamines Screen Negative U Methamphetamines Scrn Negative U Benzodiazepines Scrn Negative Urine Cocaine Screen Negative U Marijuana (THC) Screen POSITIVE A Ur Drug Screen Comment See Note Progress Note: Quality Stroke Contraindication Not Initiating IV-Tpa: Contraindicated (Time of onset unknown) Symptom Onset Unknown: Yes Contraindication Antithromb by Day Two: Medical contraindication (On Eliquis and has borderline low platelet count) Rehab Services Assessed: Physical therapy assessment (Ordered)
[2022-11-12] MEDS: NORTRIPTYLINE HCL 25 MG CAPSULE 50 MG PO (17:35)
[2022-11-12 19:00] VITALS: BP 139/87; PULSE 75; RESP 16; TEMP 36.8; O2SAT 94
--- NOTE | 2022-11-12 22:25 | PC.NURSE ---
Shift [id number]- This afternoon, just after shift change, patient sets of chair alarm, up to bathroom independently, PT staff intervene. He is noted to be a little off- not quite able to comprehend directions during that time and perhaps a little more shaky. He is sat back to chair. Blood glucose is 80 at this time. Snack given. Just after this, he is calm, able to speak with RN coherently and is alert and oriented. CIWA <9- see intervention. He continues to sit in chair, is alert and oriented throughout, though this evening he states he sees a dog outside curled up next to [place] that hasn't really moved. There is no dog. Appetite intact.
[2022-11-12 23:00] VITALS: BP 149/81; PULSE 75; RESP 16; RESP 18; TEMP 36.6; O2SAT 98
[2022-11-13 03:00] VITALS: BP 115/76; PULSE 76; RESP 18; TEMP 36.7; O2SAT 96
--- NOTE | 2022-11-13 06:04 | PC.NURSE ---
Shift note: Pt ambulates with SBA and walker to the bathroom, needs occasional directions. He was hallucinating last night, first seeing dog hiding around 2100. At midnight he tells nurse there are butterflies in the room and he couldn't belief when nurse said they're not really there.
[2022-11-13 07:06] LABS: Basophils Absolute Auto 0.02 K/uL (0.00-0.30); Basophils Percent Auto 0.3 % (0.0-3.0); Eosinophils Absolute Auto 0.21 K/uL (0.00-0.50); Eosinophils Percent Auto 3.6 % (0.0-7.0); Hematocrit 38.5 % (37.0-53.0); Hemoglobin* 12.6 gm/dL (13.5-17.5); Immature Granulocytes Abs Auto 0.02 K/uL (0.00-0.30); Immature Granulocytes Pct Auto 0.3 %; Lymphocytes Percent Auto 19.8 % (20-44); Mean Corpuscular HGB Conc 33 gm/dL (32-36); Mean Corpuscular Hemoglobin 35 pg (26-34); Mean Corpuscular Volume 106 fL (80-100); Monocytes Percent Auto 8.3 % (0.0-11.0); Neutrophils Percent Auto 67.7 % (42.0-72.0); Platelet Count* 74 K/uL (140-440); RDW Coefficient of Variation % 15.4 % (11.5-15.5); Red Blood Count 3.63 m/uL (4.30-5.90); White Blood Count* 5.77 K/uL (4.50-11.00)
[2022-11-13 07:17] LABS: Chloride* 106 mmol/L (96-114); Slide Review Reflex No
[2022-11-13 07:18] LABS: Potassium* 3.7 mmol/L (3.6-5.1); Sodium* 137 mmol/L (135-149)
[2022-11-13 07:20] LABS: Creatinine* 0.8 mg/dL (0.5-1.5); Est. Creatinine Clearance* 78.44; Estimated Glomerular Filt Rate 98 ml/min
[2022-11-13 07:21] LABS: Blood Urea Nitrogen* 10 mg/dL (7-30); Calcium* 7.6 mg/dL (8.4-10.6); Carbon Dioxide* 29 mmol/L (20-32); Glucose* 93 mg/dL (60-115); Magnesium* 1.8 mg/dL (1.5-2.6)
[2022-11-13 07:28] LABS: INR 2.39 (0.91-1.10); Prothrombin Time 27.2 Seconds
[2022-11-13 07:50] VITALS: BP 125/65; PULSE 65; RESP 16; TEMP 36.7; O2SAT 95
[2022-11-13] MEDS: FOLIC ACID 1 MG TABLET PO (08:49)
[2022-11-13] MEDS: APIXABAN 5 MG TABLET PO ×2 (08:49→20:46)
[2022-11-13] MEDS: SODIUM CHLORIDE 0.9 % (FLUSH) 10 ML SYRINGE 5 ML IVF ×2 (08:50→20:46)
[2022-11-13] MEDS: MULTIVITAMIN/MINERALS 1 TABLET 1 TAB PO (08:50)
[2022-11-13] MEDS: METOPROLOL TARTRATE 50 MG TABLET PO ×2 (08:50→20:35)
[2022-11-13] MEDS: TAMSULOSIN HCL 0.4 MG CAPSULE PO (08:51)
[2022-11-13] MEDS: THIAMINE 100 MG TABLET 250 MG PO ×2 (08:51→20:35)
[2022-11-13] MEDS: ATORVASTATIN CALCIUM 40 MG TABLET PO (08:52)
[2022-11-13] MEDS: LORazepam 1 MG TABLET PO (09:44)
[2022-11-13 11:50] VITALS: BP 125/78; PULSE 70; RESP 18; TEMP 36.7; O2SAT 97
[2022-11-13 14:55] VITALS: BP 135/81; PULSE 72; RESP 18; TEMP 36.6; O2SAT 93
[2022-11-13 15:36] LABS: Albumin* 2.7 g/dL (3.3-5.0)
[2022-11-13 15:39] LABS: Aspartate Amino Transferase* 128 U/L (12-35); Bilirubin Direct* 0.4 mg/dL (0.0-0.5); Bilirubin Total* 1.6 mg/dL (0.1-1.5)
[2022-11-13 15:40] LABS: Alanine Aminotransferase* 51 U/L (4-50); Alkaline Phosphatase* 161 U/L (40-150)
--- NOTE | 2022-11-13 16:54 | P.IMPN_ITS ---
Progress Note: A&P Assessment and plan (1) Slurred speech: Problem details: - noted on admission; combined with confusion, weakness, and left-sided decreased coordination - ddx: postictal state from ETOH withdrawal seizure (no history of this), stroke (less likely given reassuring head CT/CTA), toxic metabolic encephalopathy, intoxication, polypharmacy with marijuana/ETOH, Wernicke encephalitis. No evidence of infectious process. Symptoms wax and wane and are not lateralizing - TSH wnl, MRI unable to be obtained - CIWA scores have been wnl - more labs added 11/13, increase thiamine dosing, obtain TTE as well given cardiac history - reviewed with by phone on 11/13; she believes symptoms are likely use to alcohol overuse in addition to THC Status: Acute (2) Thrombocytopenia: Problem details: - likely 2/2 ETOH use, understands importance of abstaining from ETOH given thrombocytopenia and anticoagulation Status: Acute (3) Macrocytosis without anemia: Problem details: - Hgb 13.1 on 11/12, also has thrombocytopenia (likely related to ETOH abuse), outpatient workup if desired Status: Acute (4) Hypertension: Status: Chronic (5) Alcohol dependence: Problem details: - patient understands many of his lab abnormalities are likely 2/2 ETOH use. Complete abstinence recommended, patient and family demonstrated understanding Status: Acute (6) Weakness: Problem details: - therapies following - may require SNF Status: Acute Plan - per above - Eliquis for ppx - home versus SNF pending clinical course Subjective Date Seen: 11/13/22 Interval history: Colton was unable to tolerate brain MRI this morning; he felt that he could see and smell smoke during the procedure, was unable to lay still (even after a dose of Ativan). He worked with therapies today and was able to do steps with a walker. Continues to have intermittent visual hallucinations. Exam Narrative: Exam Narrative: GEN: Alert and intermittently answering questions appropriately HEENT: Normal external ears, EOMIs bilaterally, no scleral icterus CV: RRR, split S2, early systolic murmur R: LCTA bilaterally without concerning wheezing, air movement adequate Ext: wwp, no concerning edema Skin: No concerning skin lesions or rashes on exposed skin Neuro: No asterixis or pronator drift, mildly ataxic gait with walker Psych: Appropriate Const: Vital Signs, click to edit/add: Vital Signs - 24 hr 11/12/22 19:00 11/12/22 23:00 11/12/22 23:00 Temperature 98.2 F 98 F Pulse Rate [Left A pical] 75 Pulse Rate [Right Pulse Oximeter] 75 75 Respiratory Rate 16 18 16 Blood Pressure [Ri ght Arm] 139/87 149/81 H Pulse Oximetry 94 98 Oxygen Delivery Me thod Room Air Room Air 11/13/22 03:00 11/13/22 07:50 11/13/22 11:50 Temperature 98.1 F 98.0 F 98.1 F Pulse Rate [Left A pical] 65 70 Pulse Rate [Right Pulse Oximeter] 76 Respiratory Rate 18 16 18 Blood Pressure [Ri ght Arm] 115/76 125/65 125/78 Pulse Oximetry 96 95 97 Oxygen Delivery Me thod Room Air Room Air Room Air 11/13/22 14:55 Temperature 97.8 F Pulse Rate [Left A pical] Pulse Rate [Right Pulse Oximeter] 72 Respiratory Rate 18 Blood Pressure [Ri ght Arm] 135/81 Pulse Oximetry 93 Oxygen Delivery Me thod Room Air Labs Labs: Laboratory Results - last 24 hr 11/12/22 11/13/22 11/13/22 06:12 06:28 14:47 WBC 5.77 RBC 3.63 L Hgb 12.6 L Hct 38.5 MCV 106 H MCH 35 H MCHC 33 RDW Coeff of Noam 15.4 Plt Count 74 L Neut % (Auto) 67.7 Lymph % (Auto) 19.8 L [place] % (Auto) 8.3 Eos % (Auto) 3.6 Baso % (Auto) 0.3 Neut # (Auto) 3.90 Lymph # (Auto) 1.10 [place] # (Auto) 0.50 Eos # (Auto) 0.21 Baso # (Auto) 0.02 Abs Immat Gran (auto) 0.02 Imm/Tot Granulo (auto) 0.3 INR 2.39 H Sodium 137 Potassium 3.7 Chloride 106 Carbon Dioxide 29 BUN 10 Creatinine 0.8 Estimated Creat Clear 78.44 Estimated GFR 98 Glucose 93 Calcium 7.6 L Magnesium 1.8 Total Bilirubin 1.6 H Direct Bilirubin 0.4 AST 128 H ALT 51 H Alkaline Phosphatase 161 H Total Protein 6.0 Albumin 2.7 L TSH 2.050 Progress Note: Quality Stroke Contraindication Not Initiating IV-Tpa: Contraindicated (Time of onset unknown) Symptom Onset Unknown: Yes Contraindication Antithromb by Day Two: Medical contraindication (On Eliquis and has borderline low platelet count) Rehab Services Assessed: Physical therapy assessment (Ordered)
--- NOTE | 2022-11-13 17:39 | PC.NURSE ---
Patient A&O x3 at times. At other times alert to self only. Patient able to periodically follow instructions. At other times needs reinforcement and a lot of direction. Patient impulsive. Educated organizational development director light and alarm. Continues to get up without assistance. Ambulating with assist of one, walker and gait belt. Remains unsteady with ambulation and needing reinforcement with walker usage. Throughout shift patient having occasional visual disturbances. 'I lost that screw I dropped a dollar and can't find it commercial insurance underwriter looked for money, nothing found. I'm looking for the black window. You know what I am talking about then proceeded to point at water bottle container. Patient easily redirected. Denies pain. Tolerating regular diet. This morning patient thought today was 11/19/22 and his anniversary. Patient was reoriented to today and later this afternoon was oriented. Malorie called this afternoon regarding phone call today with MD about pickled brain. Patient's has questions/concerns after doing research into it. Message left for MD to call back. All other questions answered.
[2022-11-13 19:00] VITALS: BP 128/84; PULSE 72; RESP 18; TEMP 36.6; O2SAT 95
[2022-11-13 23:00] VITALS: BP 146/84; PULSE 72; PULSE 74; RESP 18; TEMP 36.6; O2SAT 96
[2022-11-14 03:00] VITALS: BP 165/68; PULSE 72; PULSE 78; RESP 18; TEMP 36.6; O2SAT 94
--- NOTE | 2022-11-14 06:03 | PC.NURSE ---
SHIFT NOTE : Pt alert, aware of where he is and who he is, but is definitely confused about why he is here. He is still hallucinating, often talking about the cats that are in his room and how he cannot find the ball he was throwing for the cats to fetch. Although hallucinating, CIWA score of 8, has not yet needed Ativan. Reoriented pt frequently throughout the night, cooperative. Pt denies pain, SOB, CP, and N/V. Up SBA with a walker, pt has difficulty following instructions on how to use the walker appropriately.
[2022-11-14 06:33] LABS: Lactate* 0.9 mmol/L (0.5-1.9)
[2022-11-14 06:38] LABS: Basophils Absolute Auto 0.02 K/uL (0.00-0.30); Basophils Percent Auto 0.4 % (0.0-3.0); Eosinophils Absolute Auto 0.22 K/uL (0.00-0.50); Hematocrit 39.3 % (37.0-53.0); Hemoglobin* 12.9 gm/dL (13.5-17.5); Immature Granulocytes Abs Auto 0.04 K/uL (0.00-0.30); Immature Granulocytes Pct Auto 0.7 %; Lymphocytes Absolute Auto 1.46 K/uL (0.90-2.90); Lymphocytes Percent Auto 26.3 % (20-44); Mean Corpuscular HGB Conc 33 gm/dL (32-36); Mean Corpuscular Hemoglobin 35 pg (26-34); Mean Corpuscular Volume 106 fL (80-100); Monocytes Percent Auto 9.5 % (0.0-11.0); Neutrophils Absolute Auto 3.28 K/uL (1.7-7.0); Neutrophils Percent Auto 59.1 % (42.0-72.0); Platelet Count* 80 K/uL (140-440); Red Blood Count 3.72 m/uL (4.30-5.90); Slide Review Reflex No; White Blood Count* 5.55 K/uL (4.50-11.00)
[2022-11-14 07:02] LABS: INR 2.53 (0.91-1.10); Prothrombin Time 28.5 Seconds
[2022-11-14 07:05] LABS: Albumin* 2.5 g/dL (3.3-5.0); Chloride* 106 mmol/L (96-114)
[2022-11-14 07:06] LABS: Potassium* 3.6 mmol/L (3.6-5.1); Sodium* 136 mmol/L (135-149)
[2022-11-14 07:08] LABS: Alkaline Phosphatase* 147 U/L (40-150); Aspartate Amino Transferase* 90 U/L (12-35); Bilirubin Direct* 0.4 mg/dL (0.0-0.5); Bilirubin Total* 1.4 mg/dL (0.1-1.5); Carbon Dioxide* 27 mmol/L (20-32); Creatinine* 0.8 mg/dL (0.5-1.5); Est. Creatinine Clearance* 78.44; Estimated Glomerular Filt Rate 98 ml/min; Total Protein* 5.6 g/dL (6.0-8.3)
[2022-11-14 07:09] LABS: Alanine Aminotransferase* 47 U/L (4-50); Blood Urea Nitrogen* 10 mg/dL (7-30); Calcium* 7.6 mg/dL (8.4-10.6); Glucose* 86 mg/dL (60-115); Lipase* 122 U/L (23-300)
[2022-11-14 07:11] LABS: C Reactive Protein* 1.3 mg/dL (0.5-1.0)
[2022-11-14 07:32] VITALS: BP 160/88; PULSE 68; RESP 16; TEMP 36.8; O2SAT 97
[2022-11-14] MEDS: APIXABAN 5 MG TABLET PO (08:29)
[2022-11-14] MEDS: METOPROLOL TARTRATE 50 MG TABLET PO (08:29)
[2022-11-14] MEDS: FOLIC ACID 1 MG TABLET PO (08:29)
[2022-11-14] MEDS: ATORVASTATIN CALCIUM 40 MG TABLET PO (08:29)
[2022-11-14] MEDS: TAMSULOSIN HCL 0.4 MG CAPSULE PO (08:29)
[2022-11-14] MEDS: THIAMINE 100 MG TABLET 250 MG PO ×2 (08:29→14:37)
[2022-11-14] MEDS: MULTIVITAMIN/MINERALS 1 TABLET 1 TAB PO (08:29)
[2022-11-14] MEDS: SODIUM CHLORIDE 0.9 % (FLUSH) 10 ML SYRINGE 5 ML IVF (08:30)
[2022-11-14 11:25] VITALS: BP 145/83; PULSE 70; RESP 18; TEMP 36.7; O2SAT 93
--- NOTE | 2022-11-14 14:00 | CRLHL7_ITS ---
For Patients: As a result of the Century Cures Act, medical imaging exams and procedure reports are released immediately into your electronic medical record. You may view this report before your referring provider. If you have questions, please contact your health care provider. INDICATION: Hepatic encephalopathy TECHNIQUE: Ultrasound abdomen limited. Sonographic images of the right upper quadrant were obtained using shahid-scale and color Doppler images. COMPARISON: None FINDINGS: Liver: Enlarged and diffusely increased in echogenicity with some heterogeneity although without focal lesion. Gallbladder: No stones or sludge. Normal wall thickness. No pericholecystic fluid. Common bile duct: 6 mm. Pancreas: Partially obscured by bowel gas without discrete lesion. Right kidney: Normal in size. Normal echotexture and cortex. No masses, stones, or hydronephrosis. Vasculature: Proximal abdominal aorta and IVC are normal. Small ascites. IMPRESSION: 1. No evidence of cholelithiasis or cholecystitis. 2. Hepatomegaly with moderate to severe hepatic steatosis. 3. Small ascites. Dictated by Cj Ireland MD @ 11/14/2022 3:27:11 PM (Electronically Signed)
--- NOTE | 2022-11-14 14:04 | PC.NURSE ---
Shift Summary: Patient pleasant and cooperative. Up with SBA, walker and gait belt. Vitals stable and WNL. Patient still having hallucinations of people in room, has been anxious about discharge, wants to go home today and needs frequent reminding that he is in the hospital. Denies pain or nausea. Frequently setting off bed alarm.
[2022-11-14] MEDS: LACTULOSE 20 GM/30 ML PO (14:38)
[2022-11-14 15:00] VITALS: BP 149/89; PULSE 70; PULSE 72; PULSE 74; RESP 16; RESP 18; TEMP 36.7; O2SAT 94
--- NOTE | 2022-11-14 15:54 | P.DS_ITS ---
DS: Providers Provider Date Seen: 11/14/22 Date of admission: 11/11/22 17:07 Primary care physician: Yair Mercado MD Admitting Clinician: Vianney Hdaley MD Consults: OT, PT Attending Physician on discharge: Brandi Dunham MD Date of Discharge: 11/14/22 DS: Diagnosis Discharge Diagnosis (1) Hepatic encephalopathy: Status: Acute Problem details: - elevated LFTs and ammonia - no evidence of cirrhosis on imaging - Lactulose initiated during stay - MOCA 04/21 - aware of new diagnosis and need for close f/u and supervision at home (2) Slurred speech: Status: Acute Problem details: - noted on admission; combined with confusion, weakness, visual hallucinations, and left-sided decreased coordination - symptoms waxed and waned during stay, non-lateralizing, overall improved. No evidence of infectious process, per therapies, symptoms most c/w Wernickes - TSH wnl, MRI unable to be obtained 2/2 hallucinations - CIWA scores wnl during stay - elevated LFTs and ammonia level, initiated Lactulose (3) Thrombocytopenia: Status: Acute Problem details: - likely 2/2 ETOH use, understands importance of abstaining from ETOH given thrombocytopenia and anticoagulation (4) Macrocytosis without anemia: Status: Acute Problem details: - Hgb 13.1 on 11/12, also has thrombocytopenia (likely related to ETOH abuse), outpatient workup if desired (5) Hypertension: Status: Chronic (6) Weakness: Status: Acute Problem details: - therapies followed during stay - on phone 11/14, felt that she could take him home with 24/7 supervision and close PCP f/u (7) Alcohol dependence: Status: Acute Problem details: - patient understands many of his lab abnormalities are likely 2/2 ETOH use. Complete abstinence recommended, patient and family demonstrated understanding DS: Summary Hospital Course Hospital Course: Colton is a 67-year-old male who presented to the hospital for weakness and slurred speech. Symptoms were initially thought to be secondary to alcohol and THC intoxication, but persisted throughout stay. He did not exhibit elevated CIWA scores. symptoms were nonlateralizing during stay. MRI attempted, patient was unable to complete this secondary to visual hallucinations. Labs exhibited elevated LFTs and ammonia level, lactulose initiated for hepatic encephalopathy. Therapies followed during stay and patient was able to ambulate with a walker. MOCA 04/21. updated by phone; understands patient's diagnosis and need for complete alcohol cessation. She believes that she can take him home with 13/11 supervision and close PCP follow-up to discuss any further needs they may have. Status at Discharge Functional status at discharge: uses cane/walker Time Spent with Patient Time attestation: Total time spent providing and/or coordinating discharge services: Time spent: Greater than 30 minutes Specific discharge activities: medication reconciliation, Education, updates to Exam Narrative: Exam Narrative: GEN: Alert HEENT: Normal external ears, EOMIs bilaterally, no scleral icterus CV: RRR, blowing systolic murmur, unchanged (c/w previous AVR) R: LCTA bilaterally without concerning wheezing, rales, or rhonchi Ext: wwp, no concerning edema Skin: No concerning skin lesions or rashes on exposed skin Neuro: No asterixis, negative pronator drift, wide based gait observed Psych: Mild psychomotor slowing, admits to intermittent visual hallucinations Const: Vital Signs, click to edit/add: Vital Signs - 24 hr 11/13/22 19:00 11/13/22 19:00 11/13/22 23:00 Temperature 97.9 F 97.9 F 98 F Pulse Rate [Left A pical] 72 72 74 Pulse Rate [Right Pulse Oximeter] 72 Respiratory Rate 18 18 18 Blood Pressure [Ri ght Arm] 128/84 128/84 146/84 H Pulse Oximetry 95 95 96 Oxygen Delivery Me thod Room Air Room Air Room Air 11/13/22 23:00 11/14/22 03:00 11/14/22 03:00 Temperature 98 F 98 F 98 F Pulse Rate [Left A pical] 74 78 78 Pulse Rate [Right Pulse Oximeter] 72 72 Respiratory Rate 18 18 18 Blood Pressure [Ri ght Arm] 146/84 H 165/68 H 165/68 H Pulse Oximetry 96 94 94 Oxygen Delivery Me thod Room Air Room Air Room Air 11/14/22 07:32 11/14/22 11:25 Temperature 98.3 F 98.1 F Pulse Rate [Left A pical] 68 70 Pulse Rate [Right Pulse Oximeter] Respiratory Rate 16 18 Blood Pressure [Ri ght Arm] 160/88 H 145/83 H Pulse Oximetry 97 93 Oxygen Delivery Me thod Room Air Room Air DS: Data Data Completed and Pending Labs on day of discharge: Labs from last 24 hours 11/14/22 11/13/22 11/13/22 06:20 14:47 11:47 WBC 5.55 RBC 3.72 L Hgb 12.9 L Hct 39.3 MCV 106 H MCH 35 H MCHC 33 RDW Coeff of Noam 15.0 Plt Count 80 L Neut % (Auto) 59.1 Lymph % (Auto) 26.3 [place] % (Auto) 9.5 Eos % (Auto) 4.0 Baso % (Auto) 0.4 Neut # (Auto) 3.28 Lymph # (Auto) 1.46 [place] # (Auto) 0.50 Eos # (Auto) 0.22 Baso # (Auto) 0.02 Abs Immat Gran (auto) 0.04 Imm/Tot Granulo (auto) 0.7 INR 2.53 H Sodium 136 Potassium 3.6 Chloride 106 Carbon Dioxide 27 BUN 10 Creatinine 0.8 Estimated Creat Clear 78.44 Estimated GFR 98 Glucose 86 Lactate 0.9 Calcium 7.6 L Total Bilirubin 1.4 Direct Bilirubin 0.4 AST 90 H ALT 47 Alkaline Phosphatase 147 Ammonia 94.0 H C-Reactive Protein 1.3 H Total Protein 5.6 L Albumin 2.5 L Lipase 122 Procalcitonin 0.20 Lab Acknowledgement Test Added Discharge Plan Discharge Disposition: Home, Self-Care Date of Admission: 11/11/22 17:07 Attending Provider on Discharge: Brandi Dunham Primary Care Provider: Yair Mercado Condition: Improved Anticipated Discharge Date/Time: 11/14/22 17:00 Discharge Medications: New folic acid 1 mg Tablet 1 mg PO DAILY Qty: 30 0RF thiamine mononitrate (vit B1) [Vitamin B-1 (mononitrate)] 100 mg Tablet 250 mg PO TID Qty: 30 0RF lactulose 20 gram/30 mL Solution 20 g PO TID Qty: 1500 0RF Continued metoprolol tartrate 50 mg tablet 50 mg PO BID atorvastatin 40 mg tablet 40 mg PO DAILY tamsulosin 0.4 mg capsule 0.4 mg PO DAILY Eliquis 5 mg tablet 5 mg PO BID amoxicillin 500 mg capsule 2,000 mg PO ONCE PRN Rx Instructions: PRIOR TO DENTAL APPT multivitamin [Daily Multi-Vitamin] Tablet 1 tab PO DAILY Discontinued nortriptyline 50 mg capsule 50 mg PO QPM Discharge Orders: Discharge Order (Routine); Ordered 11/14/22 Ordered By: Brandi Dunham Additional Instructions: You have hepatic encephalopathy from alcohol use; if you continue to drink alcohol, you will . NEW MEDICATIONS: 1. Thiamine and Folate - these are vitamins that help your body heal from alcohol overuse. These were sent to pharmacy 2. Lactulose - this is a drink that helps you poop out the toxins from liver disease. You should take this 2 to 3 times a day (goal is 1-2 poops/day) You must see Dr. Rogelio monterroso for a follow-up and to discuss any needs for help at home ([facility] [place], etc) Activity Level: No strenuous activity Activity Detail: No driving Discharge Diet: Heart Healthy (2 gm sodium, low fat) Follow Up Appointments: Yair Mercado MD [Primary Care Provider] - 11/23/22 11:20 am ([facility]) Forms: [employer] Info Instructions
[2022-11-14 17:48] VITALS: BP 124/77; PULSE 84; RESP 16; TEMP 36.7; O2SAT 95
== END 2022-11-14 17:40 | disposition home or self-care (01) ==
LOC: ED 16:44 → MEDSURG 11-14 15:54
PROVIDERS: Admitting Provider Family Medicine; Emergency Provider Family Medicine; PCP Family Medicine; Visit Provider Family Medicine
DX: K76.82 Hepatic encephalopathy (principal); R47.81 Slurred speech; D69.6 Thrombocytopenia, unspecified; D75.89 Other specified diseases of blood and blood-forming organs; R53.1 Weakness; F10.20 Alcohol dependence, uncomplicated; E86.0 Dehydration; I10 Essential (primary) hypertension; R29.701 NIHSS score 1
CPT/HCPCS: 36415; 70450; 70496; 70498; 76705; 80048; 80076; 80306; 81001; 82077; 82140; 82330; 83036; 83605; 83690; 83735; 83880; 84145; 84443; 84484; 85025; 85610; 85730; 86140; 87086; 93005; 93306; 96361; 96365; 97110; 97112; 97116; 97161; 97165; 97535; 99284; 99285; 99291; A9153; A9270; G0378; J0610; J7030; Q9967